=== PATIENT | male | born 1955 | race Caucasian/White ===

== ENCOUNTER → 2017-11-10 | Outpatient (CLI) | payer BC ==
--- NOTE | 2017-11-10 09:07 | CTL ---
EXAMINATION TYPE: CT Low Dose Lung DATE OF EXAM ORDERED: 11/10/2017 HISTORY:. Lung cancer screening CT DLP: 94.[address] CTDI: 2.7 mGy Automated exposure control for dose reduction was used. COMPARISON: None TECHNIQUE: Low dose computed tomography scan was performed through the chest at 1 mm thick sections a nd reconstructed images in the coronal plane at [address] DIAGNOSTIC QUALITY: Satisfactory FINDINGS: LUNG NODULES: None. LUNGS: Apical pleural thickening. No diagnostic evidence of interstitial lung disease. No pleural effusion or pneumothorax. No pleural calcification. Subsegmental linear changes at the lung bases most typical scar or atelectasis. No diagnostic evidenc e of pneumonia. Changes of central bronchiectasis. Along the left upper lobe fissure there is a 9 mm area of focal localized pleural thickening. HEART: Heart size normal. No significant coronary artery calcification. Aorta of normal caliber. OTHER FINDINGS: Anterior to the sternum within the epidermis and subcutaneous tissues there is a 0.9 cm nonspecific n odule should be correlated with clinical exam. IMPRESSION: 1. There is a 1.8 cm nonspecific epidermal and subcutaneous nodule anterior to the lower sternum terri elate clinically. 2. No sizable defined pulmonary nodules. There is a 0.9 cm area of localized thickening along the fis sure of the left upper lobe. 3. There is a mass involving the right adrenal gland measuring of -0.1 Hounsfield units and 3 cm comp atible with adrenal adenoma FOLLOW UP CT CHEST RECOMMENDATION: Six-month follow-up recommended CT LUNG RAD: 2
== END | disposition home or self-care (01) ==
LOC: RADCTMAIN 08:13
PROVIDERS: ATTEND Internal Medicine
DX: Z12.2 Encounter for screening for malignant neoplasm of respiratory organs (principal); Z87.891 Personal history of nicotine dependence

== ENCOUNTER → 2017-12-31 | Outpatient (CLI) | payer BC ==
--- NOTE | 2017-12-31 08:53 | CT ---
EXAMINATION TYPE: CT abdomen wo/w con DATE OF EXAM: 12/31/2017 COMPARISON: 11/10/2017 HISTORY: Left adrenal gland mass. Further characterization. CT DLP: 602.8 mGycm Automated exposure control for dose reduction was used. TECHNIQUE: Helical acquisition of images was performed from the lung bases through the top of iliac crest to include entire abdomen. CONTRAST: Performed with Oral Contrast and with IV Contrast, patient injected with 100 mL of Omnipaque 300. FINDINGS: LUNG BASES: No significant abnormality is appreciated. LIVER/GB: 8mm mass within the hepatic dome is low-density on noncontrast images and filled entirely o n the portal venous phase with equilibrium to the remainder of the liver on delayed phase most compat ible with a fashion filling hemangioma. 1.1 cm left hepatic lobe lesion with the same characteristics is also seen. There is a noncirrhotic morphology of the liver. No intrahepatic biliary ductal dilata tion. PANCREAS: No ductal dilatation. Enhancement is unremarkable. SPLEEN: No significant abnormality is seen. ADRENALS: There is redemonstration of a 2.0 x 2.7 cm right adrenal gland low-density nodule that carly ures Hounsfield units of a benign adrenal adenoma on precontrast imaging (1.67). On portal venous pha se this has Hounsfield unit of 44.15 and on delayed imaging of 19.71. Relative washout is 55.4% and i s consistent with a benign adenoma. The left adrenal gland is unremarkable. KIDNEYS: There is a fluid attenuated 7 mm left lower pole renal cyst. Remainder the kidneys enhance s ymmetrically. No evidence of hydronephrosis. BOWEL: No significant abnormality is seen. LYMPH NODES: No significant abnormality is seen. OSSEOUS STRUCTURES: Minimal multilevel degenerative changes of the visualized thoracolumbar spine. FREE AIR: No free air is visualized. IMPRESSION: 1. 2.7 CM RIGHT ADRENAL GLAND BENIGN ADENOMA. 2. TWO HEPATIC LESIONS WITH CHARACTERISTICS MOST FITTING OF BENIGN FLASH FILLING HEMANGIOMAS. 3. BENIGN LEFT LOWER POLE RENAL CYST.
== END | disposition home or self-care (01) ==
LOC: RADCTMAIN 06:45
PROVIDERS: ATTEND Internal Medicine Critical Care Medicine
DX: D35.01 Benign neoplasm of right adrenal gland (principal); D18.03 Hemangioma of intra-abdominal structures; N28.1 Cyst of kidney, acquired
CPT/HCPCS: 74170; Q9967

== ENCOUNTER 2020-08-10 15:47 | Emergency (ER) | payer BC, OTHER ==
[2020-08-10] MEDS ORDERED: SODIUM CHLORIDE 0.9% 1,000 ML IV STA ×2 (15:50)
[2020-08-10] MEDS ORDERED: SODIUM CHLORIDE 0.9% 500 ML 500 ML IV STA (15:50)
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
[2020-08-10 16:08] LABS: Basophils # (A) 0.1 k/uL (0-0.2); Basophils % (A) 1 %; Eosinophils # (A) 0.2 k/uL (0-0.7); Eosinophils % (A) 1 %; HCT 44.8 % (39.0-53.0); HGB 15.2 gm/dL (13.0-17.5); Lymphocytes # (A) 1.3 k/uL (1.0-4.8); Lymphocytes % (A) 10 %; MCH 32.9 pg (25.0-35.0); MCV 96.8 fL (80.0-100.0); Mean Platelet Volume 6.9; Monocytes # (A) 0.6 k/uL (0-1.0); Monocytes % (A) 5 %; Neutrophils # (A) 10.5 k/uL (1.3-7.7); Neutrophils % (A) 82 %; Platelet Count 223 k/uL (150-450); RBC 4.63 m/uL (4.30-5.90); RDW 12.2 % (11.5-15.5); WBC 12.8 k/uL (3.8-10.6)
[2020-08-10 16:18] LABS: ALT 20 U/L (4-49); AST 33 U/L (17-59); African American GFR (CKD) >90 (>60 ml/min/1.73 sqM); Albumin 3.8 g/dL (3.5-5.0); Alkaline Phosphatase 80 U/L (38-126); Anion Gap 5 mmol/L; Blood Urea Nitrogen 11 mg/dL (9-20); Calcium 8.7 mg/dL (8.4-10.2); Carbon Dioxide 25 mmol/L (22-30); Chloride 108 mmol/L (98-107); Creatine Kinase 267 U/L (55-170); Glucose 140 mg/dL (74-99); Magnesium 1.7 mg/dL (1.6-2.3); Non-African American GFR(CKD) >90 (>60 ml/min/1.73 sqM); Phosphorus 1.9 mg/dL (2.5-4.5); Potassium 3.9 mmol/L (3.5-5.1); Sodium 138 mmol/L (137-145); Total Bilirubin 0.5 mg/dL (0.2-1.3); Total Protein 6.5 g/dL (6.3-8.2)
[2020-08-10 16:19] LABS: ABG HCO3 24 mmol/L (21-25); ABG Oxygen Saturation 98.7 % (94-97); ABG PCO2 30 mmHg (35-45); ABG PH 7.51 (7.35-7.45); ABG PO2 76 mmHg (83-108); ABG TCO2 25 mmol/L (19-24)
[2020-08-10 16:20] LABS: Partial Thromboplastin Time 24.9 sec (22.0-30.0); Prothrombin Time 10.1 sec (9.0-12.0)
[2020-08-10 16:21] LABS: Allen Test Performed? no
--- NOTE | 2020-08-10 16:34 | XR ---
EXAMINATION TYPE: XR chest 1V portable DATE OF EXAM: 08/10/2020 CLINICAL HISTORY: Shortness of breath TECHNIQUE: Frontal view of the chest obtained. COMPARISON: None FINDINGS: The cardiomediastinal silhouette is within normal limits for size. Pulmonary vasculature i s normal. There is no focal air space opacity, pleural effusion, or pneumothorax seen. The osseous st ructures are intact. IMPRESSION: No acute cardiopulmonary process.
[2020-08-10 18:28] VITALS: PULSE 64; TEMP 97.9
[2020-08-10 18:58] VITALS: BP 167/91; RESP 18
== END 2020-08-10 19:50 | disposition other institution (70) ==
LOC: EC 15:47
DX: T58.91XA Toxic effect of carbon monoxide from unspecified source, accidental (unintentional), initial encounter (principal); F17.200 Nicotine dependence, unspecified, uncomplicated; Y92.009 Unspecified place in unspecified non-institutional (private) residence as the place of occurrence of the external cause
CPT/HCPCS: 36415; 36600; 71045; 80053; 82550; 82805; 83605; 83735; 84100; 84484; 85025; 85610; 85730; 93005; 96360; 96361; 99291

== ENCOUNTER → 2022-03-28 | Outpatient (CLI) | payer OTHER ==
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
== END | disposition home or self-care (01) ==
LOC: RADCTMAIN 07:43
PROVIDERS: ATTEND Internal Medicine
DX: J70.5 Respiratory conditions due to smoke inhalation (principal)
CPT/HCPCS: 71260; Q9967

== ENCOUNTER → 2023-03-04 | Outpatient (CLI) | payer BC, MEDICARE ==
--- NOTE | 2023-03-04 19:15 | CA ---
Transthoracic Echo Report Name: Richard Lentz Age: 67 Gender: M : 1955 Exam Date: 03/04/2023 16:08 Exam Location: [place] Echo Ht (in): 71 Wt (lb): 180 Ordering Physician: June Cole MD Attending/Referring Phys: Medical Sales María Francois RDCS Procedure CPT: Indications: R01.1 Cardiac Hx: Technical Quality: Good Contrast 1: Total Dose (mL): Contrast 2: Total Dose (mL): MEASUREMENTS (Male / Female) Normal Values 2D ECHO LV Diastolic Diameter PLAX 4.3 cm 4.2 - 5.9 / 3.9 - 5.3 cm LV Systolic Diameter PLAX 2.9 cm IVS Diastolic Thickness 1.7 cm 0.6 - 1.0 / 0.6 - 0.9 cm LVPW Diastolic Thickness 1.6 cm 0.6 - 1.0 / 0.6 - 0.9 cm LV Relative Wall Thickness 0.8 RV Internal Dim ED PLAX 2.8 cm LA Systolic Diameter LX 3.9 cm 3.0 - 4.0 / 2.7 - 3.8 cm LA Volume 62.1 cm??? 18 - 58 / 22 - 52 cm??? M-MODE Aortic Root Diameter MM 3.1 cm MV E Point Septal Separation 0.5 cm AV Cusp Separation MM 2.3 cm DOPPLER AV Peak Velocity 139.6 cm/s AV Peak Gradient 7.8 mmHg MV Area PHT 2.6 cm??? Mitral E Point Velocity 67.5 cm/s Mitral A Point Velocity 79.3 cm/s Mitral E to A Ratio 0.9 MV Deceleration Time 295.7 ms MV E' Velocity 6.4 cm/s Mitral E to MV E' Ratio 10.5 FINDINGS Left Ventricle Left ventricular ejection fraction is estimated at 55-60 %. Left ventricular cavity size normal. Moderate to severe concentric left ventricular hypertrophy. Right Ventricle Normal right ventricular size and function. No TR unable to estimate the right ventricular systolic pressure. Right Atrium Normal right atrial size. Left Atrium Mildly increased left atrial volume. Mitral Valve Structurally normal mitral valve. No mitral stenosis, regurgitation or prolapse. Aortic Valve Trileaflet aortic valve. No aortic valve stenosis or regurgitation. Tricuspid Valve Structurally normal tricuspid valve. No tricuspid stenosis, regurgitation or prolapse. Pulmonic Valve Structurally normal pulmonic valve. Trace pulmonic regurgitation. Pericardium No pericardial effusion. Normal pericardium. Aorta Normal size aortic root and proximal ascending aorta. CONCLUSIONS 1. Normal left ventricle size and systolic function 2. Moderate severe hypertrophy 3. No pericardial effusion Previewed by: Dr. Dedra Adames MD (Electronically Signed) Final Date: 04 Mar 2023 19:14
== END | disposition home or self-care (01) ==
LOC: RADECHMAIN 15:57
PROVIDERS: ATTEND Internal Medicine
DX: R01.1 Cardiac murmur, unspecified (principal)
CPT/HCPCS: 93306

== ENCOUNTER → 2024-11-09 | Outpatient (CLI) | payer OTHER, MEDICARE | END | disposition home or self-care (01) | LOC: LABWHC1 10:35 | PROVIDERS: ATTEND Internal Medicine Interventional Cardiology | DX: R07.9 Chest pain, unspecified (principal) | CPT/HCPCS: 36415; 84484 ==